=== PATIENT | female | born 1965 | race Caucasian/White ===

== ENCOUNTER 2025-06-12 08:14 | Day surgery (SDC) | payer BC ==
[~2025-06-12] VITALS: Ht 172.7 cm; Wt 79.5 kg
[~2025-06-12 08:14] MED LIST: CEFAZOLIN SODIUM 2 GM in SODIUM CHLORIDE 0.9% 100 ML IV SCH; CYCLOBENZAPRINE10 MG PO; IBLOOD GLUCOSE TEST STRIP 1 EA TEST VI PRN; LACTATED RINGER'S 1,000 ML IV SCH; LEVOTHYROXINE50 MC1 PO; LIDOCAINE HCL 1% 5 ML SDV INJ ONE; LOSARTAN POTASS50 MG PO; MIDAZOLAM HCL 5 MG/5 ML VIAL IV PRN; fentaNYL citrate 100 MCG/2 ML VIAL IV PRN
[2025-06-12 08:43] VITALS: BP 114/74
[2025-06-12] MEDS ORDERED: CEFAZOLIN SODIUM 2 GM in SODIUM CHLORIDE 0.9% 100 ML IV ONE (09:00)
[2025-06-12] MEDS ORDERED: MIDAZOLAM HCL 5 MG/5 ML VIAL ONE (09:40)
[2025-06-12] MEDS ORDERED: fentaNYL citrate 100 MCG/2 ML VIAL ONE (09:40)
--- NOTE | 2025-06-12 10:44 | NUR ---
06/12/25 1044 Flakita Benoit 1039-PATIENT ARRIVED TO PACU AWAKE ON RA RR EVEN 97% ORIENTED TO PACU DENIES PAIN OR NAUSEA. ENCOURAGED TO PASS GAS. IVF SALINE LOCKED. SR HR 60'S. 1044-PATIENT SLEEPING RA 98% RR EVEN
[2025-06-12 11:13] VITALS: BP 127/79
--- NOTE | 2025-06-12 11:31 | OR ---
[facility] [address], [place] [address] Signed DATE OF OPERATION: 06/12/2025 SURGEON: Reynaldo Martino MD PREOPERATIVE DIAGNOSES: 1. Screening colonoscopy. 2. History of ischemic colitis, splenic flexure, 2007. POSTOPERATIVE DIAGNOSIS: Minimal diverticular change of sigmoid otherwise normal. PROCEDURE: Total colonoscopy to cecum. ANESTHESIA: Intravenous sedation, fentanyl 200 mcg and Versed 10 mg. INDICATION: This 60-year-old white woman is a patient of Dr. Kyler Morales and is referred for screening colonoscopy. Quite notably, she underwent colonoscopy by me in 2007 for ischemic colitis. She has no current symptoms of bleeding, diarrhea or constipation. She understands the risk of screening colonoscopy including but not limited to bleeding, infection, and perforation and wished to proceed. FINDINGS: The prep was good. Complete colonoscopy was undertaken of the cecum with full intubation of the cecum. There was no evidence of polyps or stricture or signs of ischemic colitis at this time. There were few minimal scattered diverticula of the sigmoid. Otherwise things were normal. DESCRIPTION OF PROCEDURE: The patient was brought to the endoscopy suite and placed in lateral decubitus position, given intravenous sedation to the point of slurred speech and nystagmus with full cardiopulmonary monitoring. Digital rectal examination was normal. An Olympus video colonoscope was passed in the rectum and manipulated throughout the colon noting a few scattered diverticula of the sigmoid. Scope was ultimately passed to the cecum. The ileocecal valve and appendiceal orifice were normal. Scope was withdrawn from that point. Examination showed no sign of polyps or colitis and in the area of the splenic flexure no evidence of stricture. Minimal diverticular changes were Electronically Signed By: REYNALDO MARTINO MD 06/12/25 1131 PATIENT NAME: SUSY DENIS OPERATIVE REPORT DATE OF : 69 REPORT #: [id number] PHYSICIAN: REYNALDO MARTINO MD PCP: DRISS MORALES MD REPORT IS CONFIDENTIAL AND NOT TO BE RELEASED WITHOUT AUTHORIZATION [facility] [address], [place] [address] Signed noted. Retroflexed view of the rectum was normal. The scope was removed. The patient was taken to recovery room in good condition. CONCLUDING DIAGNOSIS: Essentially normal colon. Minimal diverticula. PLAN: Recommend repeat colonoscopy in 10 years, sooner if symptoms should develop. She will return to the ongoing care of Dr. Morales. MD UMANG Mcgregor/MODL /[id number] cc: Dr. Morales Copies: ~ Electronically Signed By: REYNALDO MARTINO MD 06/12/25 1131 PATIENT NAME: SUSY DENIS OPERATIVE REPORT DATE OF : 69 REPORT #: [id number] PHYSICIAN: REYNALDO MARTINO MD PCP: DRISS MORALES MD REPORT IS CONFIDENTIAL AND NOT TO BE RELEASED WITHOUT AUTHORIZATION
== END 2025-06-12 11:20 | disposition home or self-care (01) ==
LOC: OPS 08:14 → DS 08:14 → OPS 09:00 → DS 13:00
PROVIDERS: ATTEND Surgery
PROC: 0DJD8ZZ Inspection of Lower Intestinal Tract, Via Natural or Artificial Opening Endoscopic (ICD-10-PCS; principal; 2025-06-12 09:00)
DX: Z12.11 Encounter for screening for malignant neoplasm of colon (principal); K57.30 Diverticulosis of large intestine without perforation or abscess without bleeding; K55.9 Vascular disorder of intestine, unspecified; I10 Essential (primary) hypertension; E03.9 Hypothyroidism, unspecified
CPT/HCPCS: 99153; G0500; J0688; J2250; J3010; J7121